=== PATIENT | male | born 1940 | race Caucasian/White ===

== ENCOUNTER 2016-09-04 22:17 | Inpatient (IN) ==
[2016-09-04] MEDS ORDERED: SODIUM CHLORIDE 0.9% 500 ML IV STA (23:04)
[2016-09-04 23:14] LABS: Basophils # 0.1 10*3/uL (0.0-0.2); Basophils % 0.5 % (0.0-0.8); Eosinophils # 0.1 10*3/uL (0.0-0.87); Eosinophils % 1.2 % (0.00-10.9); Hematocrit 39.2 VOL% (42.0-52.0); Hemoglobin 13.5 GM/DL (14.0-18.0); Immature Granulocytes % 0.3 %; Immature Granulocytes Absolute 0.03 #; Lymphocytes # 3.1 10*3/uL (1.4-4.0); Lymphocytes % 32.3 % (21.2-54.2); Mean Corpuscular HGB Conc 34.4 GM/DL (32-36); Mean Corpuscular Hemoglobin 29 PG (27-34); Mean Corpuscular Volume 85.4 FL (87-102); Mean Platelet Volume 10.6 FL (9.6-12.0); Monocytes # 0.8 10*3/uL (0.11-0.8); Monocytes % 7.7 % (1.7-12.7); Neutrophils # 5.6 10*3/uL (1.4-7.4); Platelet Count 344 T/CUMM (130-400); Red Blood Count 4.59 MC/CUMM (3.8-5.5); Red Cell Distribution Width 13.3 % (9.3-17.3); White Blood Count 9.7 T/CUMM (4-12)
--- NOTE | 2016-09-04 23:21 | EKG Report ---
Stationary ECG Study [facility] ER Test Date: 09/04/2016 11:20:55 PM Pat Name: ALEJANDRA CHEW Department: Room: Gender: M Financial Operations Analyst: : 1940 Requested by: Tino Duncan Order Number: [id number] Reading MD: EPIFANIO POST Intervals [place] Rate: 63 P: 14 WV: 174 QRS: -15 QRSD: 110 T: -3 QT: 392 QTc: 399 Interpretive Statements SINUS RHYTHM WITH OCCASIONAL SUPRAVENTRICULAR PREMATURE COMPLEXES MINIMAL ST DEPRESSION Left ventricular hypertrophy Electronically Signed On 09-06-16 21:45:22 CDT by EPIFANIO POST [email or web address]
--- NOTE | 2016-09-04 23:23 | Emergency Department Note ---
ILevi Emily, am scribing for, and in the presence of, Tino Fuller MD 23: 09. Alina Fall Charles R, MD, personally performed the services described in this documentation, ascribed by Jazlyn Sims in my presence, and it is both accurate and complete 323 . Arrival - Arrival Chief Complaint: Altered Mental Status Stated Complaint: fall ED Nursing Triage Note: [facility] pt to room via stretcher. pt fell , em[facility] called for altered mental status. pt denies injury. Mode of Arrival: Stretcher Limitations: Altered Mental Status Source: Patient, Guardian Time Seen by Provider: 09/04/16 22:43 - History of Present Illness HPI Narrative: Pt is a 76 y/o male who was transferred from [facility] for further evaluation of AMS and seizure activity that happened earlier today. Pt is poor historian. chief supply chain officer notes he was in medical holding cell when fell out and was shaking afterwards and incontinence. Officer states he has been altered past couple days, going in and out of other inmates' cells thinking was his cell, and described as "delusional." Pt is currently talking out of his head in ED. Officer reports with EMS pt's BP was elevated of 190-70's/100-111, however, in ED it is 203/93. Onset (ago): hour(s) Consistency: constant Severity: mild, moderate Severity scale (1-10): 4 Quality: other (confused) Allergies/Adverse Reactions: Allergies Allergy/AdvReac Type Severity Reaction Status Date / Time codeine Allergy ITCHING Verified 09/04/16 22:27 Review of System - Review of System ROS unobtainable: due to mental status Medical,Surgical,& Family Hx - Social History Smoking Status: Unknown if ever smoked Frequency of Alcohol Use: Unknown Type of Drug Use: None Marital Status: Single Exam Vital Signs: Vital Signs Temperature 97.1 F L 09/04/16 22:17 Pulse Rate 70 09/04/16 22:49 Respiratory Rate 18 09/04/16 22:49 Blood Pressure 199/96 09/04/16 22:17 O2 Sat by Pulse Oximetry 99 09/04/16 22:17 - General General appearance: alert, in no apparent distress, other (parkinsonal shake) - Head Head exam: Present: atraumatic, normocephalic - Eye Eye exam: Present: PERRL, EOMI - ENT ENT exam: Present: mucous membranes moist. Absent: mucous membranes dry - Neck Neck exam: Present: full ROM. Absent: tenderness - Chest Chest inspection: Present: symmetric chest wall rise. Absent: tenderness - Respiratory Respiratory exam: Present: normal lung sounds bilaterally. Absent: respiratory distress - Cardiovascular Cardiovascular exam: Present: regular rate, normal rhythm, normal heart sounds - Extremities Exam Extremities exam: Present: full ROM. Absent: tenderness, pedal edema - Neurological Exam Neurological exam: Present: alert, CN II-XII intact, other (confused). Absent: oriented X3, motor sensory deficit - Skin Skin exam: Present: warm, dry Course - Consultations Consultation #1: Hospitalist will admit patient Time: 00:28 Results - Labs CBC & BMP: 09/04/16 23:04 09/04/16 23:04 Lab Results: I have reviewed the patients labs Labs: Laboratory Tests 09/04/16 23:04 Hgb 13.5 L Hct 39.2 L MCV 85.4 L Laboratory Tests 09/04/16 09/04/16 23:04 23:34 Sodium 152 H Chloride 117 H Anion Gap 15.7 H BUN/Creatinine Ratio 45.00 H Glucose 109 H Calculated Osmolality 311.7 H Urine Urobilinogen 2.0 H Serum Alcohol < 15 L Disposition Clinical Impression: Altered mental status, Hypernatremia, Confusion, Syncope and collapse, Unsteady gait Case discussed with: patient Disposition: Still a Patient Condition: Stable Time of Disposition: 00:28
[2016-09-04 23:30] LABS: Alanine Aminotransferase 21 U/L (16-61); Alkaline Phosphatase 100 U/L (45-117); Aspartate Amino Transferase 33 U/L (0-37); Blood Urea Nitrogen 41 MG/DL (7-18); Calcium 9.1 MG/DL (8.5-10.1); Glucose 109 MG/DL (74-106); Magnesium 2.3 MG/DL (1.8-2.4); Osmolality,Calculated 311.7 MOS/KG (273-304); Potassium 3.7 MMOL/L (3.5-5.1); Sodium 152 MMOL/L (136-145); Total Protein 7.4 G/DL (6.4-8.3); Troponin I Only < 0.015 NG/ML (0.00-0.045)
[2016-09-04 23:39] LABS: Apearance,Urine CLEAR (Clear); Bilirubin,Urine Negative (Negative); Blood, Urine Negative (Negative); Glucose,Urine (UA) Negative (Negative); Ketones,Urine 5 mg/dL (Negative); Mucus,Urine Occasional /LPF (Occasional); Nitrite,Urine Negative (Negative); Protein,Urine Negative; RBC,Urine <1 /HPF (0-4); Urine Color Yellow (Yellow); Urine Specific Gravity 1.027 (1.001-1.035); WBC,Urine 2 /HPF (0-6)
[2016-09-04 23:44] LABS: Barbiturates Screen,Urine Negative (Negative); Benzodiazepines Screen,Urine Negative (Negative); Cannabinoid Screen,Urine Negative (Negative); Opiate Screen,Urine Negative (Negative); Phencyclidine Screen,Urine Negative (Negative)
[2016-09-05 02:22] LABS: Ammonia 17 UMOL/L (11-32)
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
[2016-09-05] MEDS ORDERED: ONDANSETRON 4 MG/2 ML VIAL IV PRN (03:42)
[2016-09-05] MEDS ORDERED: hydrALAZINE 20 MG/1 ML VIAL ONE (04:09)
[2016-09-05] MEDS: hydrALAZINE 20 MG/1 ML VIAL IV PRN ×3 (04:10→20:48)
[2016-09-05] MEDS ORDERED: SODIUM CHLORIDE 0.9% 1,000 ML IV SCH (05:00)
--- NOTE | 2016-09-05 07:06 | CT Report ---
CT head/brain wo con INDICATION: Altered mental status/confusion The total DLP is 1225 mGy*cm. COMPARISON: None available Technique: Serial axial tomographic images of the brain were obtained without the use of intravenous contrast. Dose reduction: This CT exam was performed using one or more of the following dose reduction techniques: Automated exposure control, automated adjustment of the mA and/or KV according to patient size, or use of iterative reconstruction technique. Findings: Moderate generalized atrophy is noted with mild prominence of the sulci and cortical volume loss. Focal hypodensity within the right frontal lobe cortical and subcortical white matter is most compatible with remote infarct and encephalomalacic changes. Prominent periventricular white matter hypodensity changes are also noted bilaterally which do not demonstrate mass effect and are nonspecific but favored to represent sequela of chronic microvascular ischemia. There is no evidence of vascular territory infarct or acute intracranial hemorrhage. The cleaning-white matter differentiation is generally maintained. There is no hydrocephalus. The basilar cisterns are patent. Partial opacification of the right maxillary sinus is noted. Otherwise, the visualized paranasal sinuses, mastoid air cells and middle ear cavities are predominantly clear. The included orbits and their contents appear within normal limits. The visualized osseous structures and overlying soft tissues of the skull and face demonstrate no acute abnormality. IMPRESSION: No acute intracranial hemorrhage or infarction. Probable remote right frontal lobe infarct. Diffuse somewhat prominent areas of periventricular white matter hypodensity which are nonspecific and may represent sequela of chronic microvascular ischemia. Other causes including metabolic or demyelinating are not excluded. If there is continued concern for underlying infarct, MRI would be recommended. Preliminary report by virtual radiologic. PROCEDURE INTERPRETED AT [facility] DEPARTMENT OF RADIOLOGY Final Report Signed by: Tyler Easton
--- NOTE | 2016-09-05 08:07 | XRay Report ---
Exam: XR chest 1V portable Indication: Altered mental status Comparison study: None Findings: The heart, mediastinum, and bony structures are within normal limits. There is no focal consolidation, pneumothorax or pleural effusion identified. Impression: No acute cardiopulmonary process. PROCEDURE INTERPRETED AT [facility] DEPARTMENT OF RADIOLOGY Final Report Signed by: Tyler Easton
[2016-09-05 08:47] LABS: Calcium 8.7 MG/DL (8.5-10.1); Osmolality,Calculated 305.7 MOS/KG (273-304); Potassium 3.4 MMOL/L (3.5-5.1)
[2016-09-05] MEDS ORDERED: LISINOPRIL/HCTZ 20-12.5 MG TABLET PO SCH (09:00)
[2016-09-05] MEDS: PANTOPRAZOLE 40 MG TABLET PO SCH (11:08)
[2016-09-05] MEDS: TAMSULOSIN 0.4 MG CAPSULE PO SCH (11:08)
[2016-09-05] MEDS: ENOXAPARIN 40 MG/0.4 ML SYRINGE SUBCUT SCH (11:09)
--- NOTE | 2016-09-05 11:44 | Magnetic Resonance Report ---
Exam: MR head/brain wo con Date: 09/05/2016 7:00 AM Comparison: CT brain 09/04/2016 Indication: Alteration of consciousness Technique:[Multiple acquisitions were obtained including sagittal T1, coronal T2, and axial ADC, diffusion, FLAIR, T2, GRE, and T1 scans without contrast only. Scans were obtained on an open 1.2 Maddie magnet. Findings: The ventricles remain normal in size with no midline displacement. The pituitary has a normal appearance and the cerebellar tonsils are normal in location. No acute infarction is identified in the diffusion scans. No evidence of hemorrhage, mass, or extracerebral collection. Diffuse atrophy and FLAIR/T2 hyperintensities. Bilateral frontal lobe infarctions with finding larger on the right. Chronic bilateral basal ganglia and right pontine infarcts. Additional enlarged perivascular spaces. 15 mm air-fluid level in the right maxillary sinus with additional minimal mucosal thickening/fluid. No acute findings in the orbits, temporal bones, or [place] of [place]. Impression: No acute infarction is identified. Cerebral atrophy with extensive microvascular disease and multiple chronic infarcts. Sinusitis. PROCEDURE INTERPRETED AT [facility] DEPARTMENT OF RADIOLOGY Final Report Signed by: Dr. Sandra Arenas
[2016-09-05] MEDS ORDERED: amLODIPine 10 MG TABLET PO SCH (13:00)
--- NOTE | 2016-09-05 13:07 | Hospitalist Progress Note ---
Assessment and Plan (1) Hypertensive crisis Status: Acute Assessment and plan: Patient is actually extremely orthostatic he went from 170-130. I will hold the Norvasc continue the losartan I will give him a liter of normal saline and continue hydration with D5W, head of his bed needs to remain in a 90 angle at all times. Current Visit: Yes (2) CVA, old, ataxia Status: Acute Assessment and plan: MRI shows no evidence of new infarcts but does show bilateral chronic infarcts continue aspirin Current Visit: Yes (3) Altered mental status Status: Acute Assessment and plan: probably due to dehydration and hypernatremia Current Visit: Yes (4) Hypernatremia Status: Acute Assessment and plan: cont d5w at 125 ml/hr Current Visit: Yes (5) Syncope and collapse Status: Acute Assessment and plan: due to orthostatic hypotension, PT evaluation and treat Current Visit: Yes Hospitalist: Subjective Interval history: On examination prisoner does seem confused. Guards could not tell me anything about his baseline. He was also weak on his left side on examination. MRI of his brain shows previous multiple infarcts but nothing acute. Patient has been falling out of the senior care so I will check orthostatics. His blood pressure is extremely high. His heart rate is low and therefore I cannot use beta blockers. Patient is not on aspirin but I have started one. I was called by Ross the nurse and he is severely orthostatic drops from 170 down to 130 with standing up. Exam - Constitutional Vitals: Period Temp Pulse Resp BP Sys/Alonso Pulse Ox Last 24 Hr 97.8 F-98.9 F 54-90 18-20 170-186/77-82 94-99 Exam: Heart Rate-[RRR] Lungs-[CTAB] GI-[+bs soft, NT] Ext-[no edema] Neuro [Motor 5/5 but weaker on left], [alert and oriented times 1] psych [normal mood and affect] General [no acute distress] Results - Labs CBC & BMP: 09/04/16 23:04 09/05/16 08:04 Lab Results: I have reviewed the past 24 hour labs - Diagnostic Findings Procedure: MRI: report reviewed by me (chronic bilateral infarcts, nothing acute )
[2016-09-05] MEDS ORDERED: POTASSIUM CHLORIDE 20 MEQ TABLET PO ONE (13:08)
[2016-09-05] MEDS ORDERED: SODIUM CHLORIDE 0.9% 1,000 ML IV ONE (13:52)
[2016-09-05] MEDS: ASPIRIN EC 81 MG TABLET PO SCH (14:16)
[2016-09-05] MEDS: LOSARTAN 50 MG TABLET PO SCH ×2 (14:16→20:48)
[2016-09-05] MEDS: DEXTROSE 5% 1,000 ML IV SCH ×2 (17:18→23:48)
[2016-09-05 18:10] LABS: ABG Base Excess -0.2 MMOL/L (-2.5-2.5); ABG HCO3 22.5 MMOL/L (20-26); ABG Oxygen Saturation 96.5 % (95-100); ABG PCO2 31.3 MM HG (35-48); ABG PH 7.474 (7.35-7.45); ABG PO2 81.7 MM HG (80-95); ABG TCO2 23.4 MMOL/L (23-27); Allen Test Positive; Pt O2 Delivery Device Room Air
[2016-09-06] MEDS: hydrALAZINE 20 MG/1 ML VIAL IV PRN (00:48)
[2016-09-06 05:33] LABS: Calcium 8.3 MG/DL (8.5-10.1); Osmolality,Calculated 297.1 MOS/KG (273-304); Potassium 3.5 MMOL/L (3.5-5.1)
[2016-09-06] MEDS: DEXTROSE 5% 1,000 ML IV SCH ×2 (06:59→13:12)
[2016-09-06] MEDS: PANTOPRAZOLE 40 MG TABLET PO SCH (08:52)
[2016-09-06] MEDS: TAMSULOSIN 0.4 MG CAPSULE PO SCH (08:52)
[2016-09-06] MEDS: ASPIRIN EC 81 MG TABLET PO SCH (08:52)
[2016-09-06] MEDS: ENOXAPARIN 40 MG/0.4 ML SYRINGE SUBCUT SCH (08:52)
[2016-09-06] MEDS: LOSARTAN 50 MG TABLET PO SCH ×2 (08:52→21:09)
--- NOTE | 2016-09-06 11:09 | Hospitalist Progress Note ---
Assessment and Plan (1) Hypertensive crisis Status: Acute Assessment and plan: patient has orthostatic hypotension which has not improved with hydration. Patient has terrible supine hypertension patient to sleep at the head of the bed and angle at night. will add norvasc, he has neurogenic hypotension. Current Visit: Yes (2) CVA, old, ataxia Status: Acute Assessment and plan: MRI shows no evidence of new infarcts but does show bilateral chronic infarcts continue aspirin Current Visit: Yes (3) Altered mental status Status: Acute Assessment and plan: Resolved Current Visit: Yes (4) Hypernatremia Status: Acute Assessment and plan: cont d5w at 125 ml/hr Current Visit: Yes (5) Syncope and collapse Status: Acute Assessment and plan: due to orthostatic hypotension due to dehydration, PT evaluation and treat Current Visit: Yes Hospitalist: Subjective Interval history: Needs to sleep on a foam wedge at the person. Head of his bed needs to be elevated at all times when he is sleeping. Patient is still orthostatic today but says he feels fine. His confusion has resolved. The present will not pay for any rehab at this time. Will most likely returning to intermediate tomorrow. Exam - Constitutional Vitals: Period Temp Pulse Resp BP Sys/Alonso Pulse Ox Last 24 Hr 98.1 F-99.1 F 65-88 12-20 133-198/69-101 94-100 Exam: Heart Rate-[RRR] Lungs-[CTAB] GI-[+bs soft, NT] Ext-[no edema] Neuro [Motor 5/5 but weaker on left], [alert and oriented times 3] psych [normal mood and affect] General [no acute distress] Results - Labs CBC & BMP: 09/04/16 23:04 09/06/16 03:48 Lab Results: I have reviewed the past 24 hour labs
[2016-09-06] MEDS: amLODIPine 5 MG TABLET PO SCH (13:17)
[2016-09-07] MEDS: DEXTROSE 5% 1,000 ML IV SCH ×2 (09:50→12:23)
[2016-09-07] MEDS: TAMSULOSIN 0.4 MG CAPSULE PO SCH (09:56)
[2016-09-07] MEDS: LOSARTAN 50 MG TABLET PO SCH ×2 (09:56→21:11)
[2016-09-07] MEDS: amLODIPine 5 MG TABLET PO SCH (09:57)
[2016-09-07] MEDS: ENOXAPARIN 40 MG/0.4 ML SYRINGE SUBCUT SCH (09:57)
[2016-09-07] MEDS: ASPIRIN EC 81 MG TABLET PO SCH (09:57)
[2016-09-07] MEDS: PANTOPRAZOLE 40 MG TABLET PO SCH (09:57)
[2016-09-07 10:49] LABS: Basophils % 0.3 % (0.0-0.8); Eosinophils # 0.1 10*3/uL (0.0-0.87); Eosinophils % 0.6 % (0.00-10.9); Hematocrit 39.3 VOL% (42.0-52.0); Hemoglobin 13.6 GM/DL (14.0-18.0); Immature Granulocytes % 0.4 %; Immature Granulocytes Absolute 0.05 #; Lymphocytes # 3.4 10*3/uL (1.4-4.0); Lymphocytes % 28.2 % (21.2-54.2); Mean Corpuscular HGB Conc 34.6 GM/DL (32-36); Mean Corpuscular Hemoglobin 30 PG (27-34); Mean Corpuscular Volume 85.8 FL (87-102); Mean Platelet Volume 9.9 FL (9.6-12.0); Monocytes # 0.9 10*3/uL (0.11-0.8); Monocytes % 7.1 % (1.7-12.7); Neutrophils # 7.5 10*3/uL (1.4-7.4); Neutrophils % 63.4 % (38.7-73.9); Platelet Count 335 T/CUMM (130-400); Red Blood Count 4.58 MC/CUMM (3.8-5.5); Red Cell Distribution Width 13.4 % (9.3-17.3); White Blood Count 11.9 T/CUMM (4-12)
[2016-09-07 11:16] LABS: Calcium 8.6 MG/DL (8.5-10.1); Osmolality,Calculated 304.7 MOS/KG (273-304); Potassium 3.4 MMOL/L (3.5-5.1)
--- NOTE | 2016-09-07 11:37 | CT Report ---
History: Confusion. History of CVA. Syncope Date: 09/07/2016 Study: CT head without contrast Comparison exam: September 04, [address] sections were obtained through the head without IV contrast. Total DLP measures 1025.6 mGy*cm. The CT exam was performed using one or more of the following dose reduction techniques: Automated exposure control and adjustment of the mA and/or kV according to patient size. The ventricles are midline in position without evidence of hydrocephalus. There is mild cerebral atrophy. There is no mass effect or parenchymal hemorrhage. There is no gross CT evidence of acute cortical stroke. There is a moderate amount of patchy ill-defined decreased density in the periventricular white matter without mass effect compatible with changes of small vessel disease. There is chronic infarction in the right frontal lobe involving right MCA distribution territory as before. There is no extra-axial hematoma. There is suspected chronic lacunar infarction in the moreno to the right of midline. The partially visualized paranasal sinuses and mastoid air cells are clear. There is no acute abnormality of the calvarium. Impression: No acute intracranial process compared to the previous study. Chronic ischemic changes as before PROCEDURE INTERPRETED AT [facility] DEPARTMENT OF RADIOLOGY Final Report Signed by: Dr. Nemo Goldman
[2016-09-07] MEDS: CARVEDILOL 3.125 MG TABLET PO SCH ×2 (12:19→21:11)
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
--- NOTE | 2016-09-07 15:28 | Ultrasound Report ---
History: Leg swelling Date: 09/07/2016 Study: Bilateral lower extremity color flow venous Doppler study Comparison exam: No previous venous ultrasound currently available Color Doppler, wave form analysis, and compression analysis of the deep veins of both lower extremities from the common femoral vein level through the popliteal vein level shows that the veins are readily compressible. There is no abnormal intraluminal material to suggest thrombus. Waveform analysis is unremarkable. Ultrasound images were captured and archived Impression: Normal bilateral lower extremity color flow venous Doppler study. No evidence of acute DVT PROCEDURE INTERPRETED AT [facility] DEPARTMENT OF RADIOLOGY Final Report Signed by: Dr. Nemo Goldman
[2016-09-07] MEDS ORDERED: VANCOMYCIN INJ 2,000 MG in SODIUM CHLORIDE 0.9% 500 ML IV ONE (15:30)
--- NOTE | 2016-09-07 15:41 | XRay Report ---
History: Shortness of breath Date: 09/07/2016 Study: Chest x-ray AP portable Comparison exam: September 04, 2016 chest x-ray The cardiac silhouette is upper normal in size. There is no mediastinal mass. The pulmonary vasculature is not engorged. There is moderate elevation of the right hemidiaphragm as before. There is some mild strandy subsegmental atelectasis in the right lung base. There is no potential acute infiltrate otherwise. There is no gross pleural effusion. Osseous structures are unchanged. Impression: Mild platelike subsegmental atelectasis right lung base. No significant change from the previous study otherwise PROCEDURE INTERPRETED AT [facility] DEPARTMENT OF RADIOLOGY Final Report Signed by: Dr. Nemo Goldman
[2016-09-07] MEDS: cefTRIAXone 2,000 MG in SODIUM CHLORIDE 0.9% 100 ML IV SCH (15:51)
[2016-09-07] MEDS: POTASSIUM CHLORIDE INJ 40 MEQ in DEXTROSE 5% 1,000 ML IV SCH (15:51)
[2016-09-07] MEDS: hydrALAZINE 20 MG/1 ML VIAL IV PRN (16:53)
[2016-09-08] MEDS: cefTRIAXone 2,000 MG in SODIUM CHLORIDE 0.9% 100 ML IV SCH ×2 (03:21→15:54)
[2016-09-08] MEDS: VANCOMYCIN INJ 1,250 MG in SODIUM CHLORIDE 0.9% 250 ML IV SCH ×2 (04:37→17:48)
[2016-09-08 05:27] LABS: Basophils % 0.4 % (0.0-0.8); Eosinophils # 0.2 10*3/uL (0.0-0.87); Eosinophils % 2.1 % (0.00-10.9); Hematocrit 37.2 VOL% (42.0-52.0); Hemoglobin 12.9 GM/DL (14.0-18.0); Immature Granulocytes % 0.3 %; Immature Granulocytes Absolute 0.03 #; Lymphocytes # 3.2 10*3/uL (1.4-4.0); Mean Corpuscular HGB Conc 34.7 GM/DL (32-36); Mean Corpuscular Hemoglobin 29 PG (27-34); Mean Corpuscular Volume 84.4 FL (87-102); Mean Platelet Volume 10.9 FL (9.6-12.0); Monocytes # 0.9 10*3/uL (0.11-0.8); Monocytes % 8.7 % (1.7-12.7); Neutrophils # 5.5 10*3/uL (1.4-7.4); Neutrophils % 55.5 % (38.7-73.9); Platelet Count 324 T/CUMM (130-400); Red Blood Count 4.41 MC/CUMM (3.8-5.5); Red Cell Distribution Width 13.5 % (9.3-17.3); White Blood Count 9.8 T/CUMM (4-12)
[2016-09-08 05:53] LABS: Albumin 3.1 G/DL (3.4-5.0); Bilirubin,Total 0.6 MG/DL (0.2-1.0); Calcium 7.8 MG/DL (8.5-10.1); Osmolality,Calculated 303.7 MOS/KG (273-304); Potassium 3.7 MMOL/L (3.5-5.1); Total Protein 6.3 G/DL (6.4-8.3)
[2016-09-08] MEDS: TAMSULOSIN 0.4 MG CAPSULE PO SCH (08:28)
[2016-09-08] MEDS: PANTOPRAZOLE 40 MG TABLET PO SCH (08:28)
[2016-09-08] MEDS: LOSARTAN 50 MG TABLET PO SCH ×2 (08:42→22:48)
[2016-09-08] MEDS: CARVEDILOL 3.125 MG TABLET PO SCH ×2 (08:43→17:48)
[2016-09-08] MEDS: amLODIPine 5 MG TABLET PO SCH (08:43)
[2016-09-08 09:12] LABS: PT Patient Result 10.8 SECS
--- NOTE | 2016-09-08 10:39 | Post Interventional Procedure ---
Pre-op diagnosis: altered mental status with confusion, syncope/collapse Post-op diagnosis: same Procedure: lumbar puncture Contrast: none Flouroscopy: 0.7 min Radiologist: Tyler Easton Anesthesia: local Specimens: other (10 mL clear colorless CSF sent) Estimated blood loss: none Complications: none Condition: stable Description/Findings: L3-L4 intersapce accessed without difficulty. Opening pressure 20 cm H2O. 10 mL clear, colorless CSF sent for analysis. sterile dressing applied. patient tolerated procedure well with no complications. Assessment and Plan - Time spent with patient Time spent with patient: Less than 30 minutes
--- NOTE | 2016-09-08 10:44 | Interventional Radiology Rpt ---
Procedure: IR lumbar puncture diagnostic Clinical history: 76 year-old male with hypertensive crisis, old history of stroke, altered mental status/confusion and syncope/collapse. Procedure: Informed consent was obtained prior to procedure. Formal timeout was performed. Maximum sterile barrier technique was employed. The patient was placed prone on the fluoroscopy table. The low back was prepped and draped in a sterile fashion. A midline lumbar puncture was then performed at the L3-L4 interspace using a 20-gauge spinal needle. Fluoroscopic guidance was used and a captured image documents the needle position. An opening pressure of 8 cm water was obtained. Subsequently, 10 milliliters of clear, colorless CSF was withdrawn and sent to laboratory. The spinal needle was removed and a bandage placed the puncture site. Fluoroscopy time: 0.7 minutes. Consultations: None. Impression: Technically successful diagnostic lumbar puncture as described. PROCEDURE INTERPRETED AT [facility] DEPARTMENT OF RADIOLOGY Final Report Signed by: Tyler Easton
[2016-09-08 11:12] LABS: Appearance,CSF Clear; Lymphocytes,CSF 44 %; Monocytes,CSF 56 %; Red Blood Cell,CSF < 1 C/CUMM; White Blood Cell,CSF 14 C/CUMM
[2016-09-08 11:20] LABS: Glucose,CSF 61 MG/DL (40-70)
--- NOTE | 2016-09-08 11:59 | Hospitalist Progress Note ---
Assessment and Plan (1) Altered mental status Status: Acute Assessment and plan: 1)confusion/altered mental status- LP results pending. On vanc and ceftriaxone in [place] meantime. No fever, no rash. Bcx negative, UA neg. Likely due to hypernatremia. syphillis neg. 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 While at rest BP up to 190 yesterday- now 150s on coreg. 4)hypernatremia- sodium is 152- continue hydration. Current Visit: Yes (2) Hypernatremia Status: Acute Current Visit: Yes (3) Syncope and collapse Status: Acute Current Visit: Yes (4) CVA, old, ataxia Status: Acute Current Visit: Yes (5) Hypertensive crisis Status: Acute Current Visit: Yes Hospitalist: Subjective Interval history: MR Edmonds feels ok this morning he says but remains confused. He is oriented to year and president, not month or day. He was cooperative with LP. He is hungry. Exam - Constitutional Vitals: Period Temp Pulse Resp BP Sys/Alonso Pulse Ox Last 24 Hr 97.2 F-99.5 F 72-84 17-22 150-191/73-97 94-98 General appearance: normal weight, no acute distress - Head Head exam: Present: normocephalic, atraumatic - Eye Eye exam: Present: EOMI. Absent: scleral icterus Pupils: Present: REBECA - Respiratory Respiratory exam: Present: clear to auscultation bilaterally - Cardiovascular Cardiovascular exam: Present: regular rate and rhythm - GI/Abdominal GI/Abdominal exam: Present: normal bowel sounds, soft. Absent: tenderness - Extremities Exam Extremities exam: Absent: edema - Neurological Exam Neurological exam: Present: alert. Absent: motor sensory deficit - Skin Skin exam: Present: warm, dry Results - Labs CBC & BMP: 09/08/16 04:36 09/08/16 04:36 Lab Results: I have reviewed the past 24 hour labs
[2016-09-08] MEDS: POTASSIUM CHLORIDE INJ 40 MEQ in DEXTROSE 5% 1,000 ML IV SCH ×2 (13:34→22:40)
[2016-09-08] MEDS: ACYCLOVIR INJ 1,000 MG in SODIUM CHLORIDE 0.9% 250 ML IV SCH ×2 (13:35→22:49)
--- NOTE | 2016-09-08 13:41 | Neurology Consult Note ---
History of Present Illness History of present illness: Mr. Edmonds is a 76 year old male who was transferred from the correctional facility for further evaluation of altered mental status and possible seizure activity that happened earlier the day of admission. Patient is a poor historian and history basically obtained from the chart. We have been told by the security patrol officer that this is not his normal way of acting. We were told there was an event where he fell out and was shaking afterwards and incontinent. Officer has told us that for the past couple of days has been going in and out of other inmates cells think it was his cell. He has been noted as being delusional. Patient also reported to me that he has been blacking out for last 1 month. He has done that 3-4 times. MRI of the brain is unremarkable. Spinal tap reveals 14 WBC count otherwise absolutely unremarkable. Normal glucose, proteins. Home Medications Medication Instructions Recorded Confirmed Type Cyclobenzaprine HCl 10 mg PO BID 09/05/16 09/05/16 History Lisinopril/Hydrochlorothiazide 12.5 mg PO DAILY 09/05/16 09/05/16 History [Lisinopril-Hctz 20-12.5 mg Tab] Naproxen [Naprosyn Tab] 500 mg PO BID PRN 09/05/16 09/05/16 History Tamsulosin [Flomax] 0.4 mg PO DAILY 09/05/16 09/05/16 History Allergies Allergy/AdvReac Type Severity Reaction Status Date / Time codeine Allergy ITCHING Verified 09/04/16 22:27 12 point system: reviewed and no additional remarkable complaints except as stated Medical,Surgical,& Family Hx - Medical History Cardio: History of: Hypertension Genitourinary: History of: Prostate Problems Other: History of: Miscellaneous Medical Problems (Hepatitis B and C) - Social History Smoking Status: Unknown if ever smoked Frequency of Alcohol Use: Unknown Type of Drug Use: Unknown Exam - Constitutional Vitals: Period Temp Pulse Resp BP Sys/Alonso Pulse Ox Last 24 Hr 97.2 F-98.7 F 72-84 17- 150-182/73-95 94-98 Exam: GENERAL: Patient is in no acute distress. NECK: Neck is supple. There is no JVD. No carotid bruits present. No thyroid masses. CVS: First and second heart sounds are normal. There is no S3 present. Regular rate and rhythm. RESPIRATORY: Lungs are clear to auscultation without any rales or rhonchi. ABDOMEN: Soft and non-tender. Bowel sounds are present. There is no hepatosplenomegaly. EXT: There is no palpable edema. Peripheral pulses are present. Skin: No rashes Central Nervous system: General: Alert, awake and Oriented x 3 Speech: Fluent Comprehension: Intact and normal Facial expressions: Normal Cranial Nerves: CN1/Olfactory: Normal CN II/ Optic: Normal, Visual Mera unreliable CN III, and : REBECA & EOMI CN V: Normal & intact CN VII: face is symmetric CNVIII: Normal CN XI/X/XI/XII: Intact and Normal Motor: Bulk and Tone is normal. Strength in the right 5/5 Strength in the left 5/5 Sensory: Grossly intact for all the modalities of PP, LT and temp sense Reflexes: 1+ and symmetrical Cerebellar function: Normal finger to nose and heel to dunn testing. Toes: Equivocal Gait: Not tested Results - Labs CBC & BMP: 09/08/16 04:36 09/08/16 04:36 Assessment and Plan (1) Altered mental status Status: Acute Assessment and plan: Suspect viral etiology of meningeal irritation. Agree with acyclovir until we get PCR results back EEG Thank you for the consult Current Visit: Yes
--- NOTE | 2016-09-08 15:05 | Physician Query Form ---
CLICK EDIT DOCUMENT TO SELECT QUERY ANSWER --> OK --> SIGN Flores Camacho RN Clinical Proof Load Mechanic W) [phone] (f) [phone] [email or web address] PROVIDERS: Make your selection(s) from the choices in EACH section by typing an "x" and enter comments in the comment section. Please use your independent medical judgment in providing your response. This request does not imply that any particular answer is desired or expected. CLINICAL INDICATORS: (Providers should not edit this section) Based on documentation of "Acute altered mental status" "Has been delusional" "Pt is currently talking out of his head" "Acute hypernatremia" "Acute Hypertensive crisis" "Acute confusion" Treated with NS bolus, IV Apresoline, IV Vancomycin, IV Zovirax. ACUITY: ( x) Acute ( ) Acute on Chronic ( ) Chronic ( ) Clinically unable to determine NATURE: (x ) Delirium due to general medical condition ( ) Dementia ( ) Encephalopathy ( ) Unconscious ( ) Transient level of awareness ( ) Comatose ( ) Locked-in State ( ) Persistent Vegetative State ( ) Other, please specify: ( ) Clinically unable to determine Please indicate the underlying cause of the altered mental status (CHECK ALL THAT APPLY): ( ) Baseline dementia ( ) Alzheimer's disease ( ) Parkinson's disease ( ) Lewy body dementia ( ) Acute stroke ( ) Late effect of stroke ( ) Reactive (from emotional stress, psychological trauma) ( ) Due to narcotics/other drugs ( ) Post procedural delirium ( ) Transient ischemic attack ( ) Generalized cerebral edema ( ) Normal pressure hydrocephalus ( ) Psychiatric illness ( ) Other, please specify: ( ) Clinically unable to determine Please indicate if there is an infection, sepsis, dehydration or specific organ failure that is causing the dementia. Be specific with clarifying the relationship between that process and the mental status change. COMMENTS: Use of terms such as suspected, likely, or probable (associated with a specific diagnosis that is being evaluated, monitored, or treated as if it exists) are acceptable and can be restated in the discharge summary if not ruled out. MTDD
[2016-09-09] MEDS: POTASSIUM CHLORIDE INJ 40 MEQ in DEXTROSE 5% 1,000 ML IV SCH (00:44)
[2016-09-09] MEDS: cefTRIAXone 2,000 MG in SODIUM CHLORIDE 0.9% 100 ML IV SCH ×2 (04:30→15:40)
[2016-09-09] MEDS: VANCOMYCIN INJ 1,250 MG in SODIUM CHLORIDE 0.9% 250 ML IV SCH ×2 (05:38→17:34)
[2016-09-09] MEDS: ACYCLOVIR INJ 1,000 MG in SODIUM CHLORIDE 0.9% 250 ML IV SCH ×3 (07:19→22:18)
[2016-09-09 08:21] LABS: Basophils % 0.4 % (0.0-0.8); Eosinophils # 0.2 10*3/uL (0.0-0.87); Hematocrit 38.4 VOL% (42.0-52.0); Hemoglobin 13.5 GM/DL (14.0-18.0); Immature Granulocytes % 0.3 %; Immature Granulocytes Absolute 0.03 #; Lymphocytes # 3.9 10*3/uL (1.4-4.0); Mean Corpuscular HGB Conc 35.2 GM/DL (32-36); Mean Corpuscular Hemoglobin 30 PG (27-34); Mean Corpuscular Volume 83.8 FL (87-102); Mean Platelet Volume 10.6 FL (9.6-12.0); Monocytes # 0.8 10*3/uL (0.11-0.8); Monocytes % 6.8 % (1.7-12.7); Neutrophils # 6.2 10*3/uL (1.4-7.4); Neutrophils % 55.5 % (38.7-73.9); Platelet Count 356 T/CUMM (130-400); Red Blood Count 4.58 MC/CUMM (3.8-5.5); Red Cell Distribution Width 13.5 % (9.3-17.3); White Blood Count 11.1 T/CUMM (4-12)
[2016-09-09 08:52] LABS: Bilirubin,Total 0.5 MG/DL (0.2-1.0); Calcium 8.2 MG/DL (8.5-10.1); Osmolality,Calculated 297.1 MOS/KG (273-304); Potassium 3.6 MMOL/L (3.5-5.1); Total Protein 6.3 G/DL (6.4-8.3)
[2016-09-09] MEDS: TAMSULOSIN 0.4 MG CAPSULE PO SCH (09:14)
[2016-09-09] MEDS: LOSARTAN 50 MG TABLET PO SCH ×2 (09:15→22:27)
[2016-09-09] MEDS: CARVEDILOL 3.125 MG TABLET PO SCH (09:15)
[2016-09-09] MEDS: PANTOPRAZOLE 40 MG TABLET PO SCH (09:15)
[2016-09-09] MEDS: amLODIPine 5 MG TABLET PO SCH (09:15)
[2016-09-09] MEDS ORDERED: NAPROXEN 500 MG TABLET PO PRN (11:33)
--- NOTE | 2016-09-09 11:33 | Hospitalist Progress Note ---
Assessment and Plan - Time spent with patient Time spent with patient: Less than 30 minutes (1) Altered mental status Status: Acute Assessment and plan: 76-year-old male admitted with viral meningitis. His confusion is improved. He is running low-grade fevers but will order Tylenol for this. He is on Rocephin, vancomycin, and acyclovir. Patient's blood pressure is elevated and this could be the source of his headache. He takes Norvasc, Coreg, and Cozaar for this. Will discuss with Dr. White about adjusting. His hypernatremia is trending down. It is 149 today. Continue with current IV fluids. LTAC placement in [place] is pending for tomorrow at [address] White Current Visit: Yes (2) Hypernatremia Status: Acute Current Visit: Yes (3) CVA, old, ataxia Status: Acute Current Visit: Yes (4) Hypertensive crisis Status: Acute Current Visit: Yes Hospitalist: Subjective Interval history: Patient states he is not feeling well today. He is running fevers up to 100.1. And he states he has a mild headache. He is eating and voiding well. Exam - Constitutional Vitals: Period Temp Pulse Resp BP Sys/Alonso Pulse Ox Last 24 Hr 98.3 F-100.3 F 59-72 16-20 148-172/75-96 92-97 Exam: 76-year-old white male, no acute distress, alert and oriented Chest clear CV regular rate and rhythm Abdomen soft and nontender Extremities with no edema Results - Labs CBC & BMP: 09/09/16 07:46 09/09/16 07:46 Lab Results: I have reviewed the past 24 hour labs
[2016-09-09] MEDS ORDERED: ACETAMINOPHEN 325 MG TABLET PO PRN ×2 (11:34)
--- NOTE | 2016-09-09 14:47 | Neurology Progress Note ---
Neurology - PN : Subjective Interval history: Patient seems to be doing okay. No new problems reported. Tolerating medicines well. EEG shows mild generalized slowing. Exam (Progress Note) - Constitutional Vitals: Period Temp Pulse Resp BP Sys/Alonso Pulse Ox Last 24 Hr 99.0 F-100.3 F 64-72 17-20 148-172/75-96 92-97 Exam: GENERAL: Patient is in no acute distress. NECK: Neck is supple. There is no JVD. No carotid bruits present. No thyroid masses. CVS: First and second heart sounds are normal. There is no S3 present. Regular rate and rhythm. RESPIRATORY: Lungs are clear to auscultation without any rales or rhonchi. ABDOMEN: Soft and non-tender. Bowel sounds are present. There is no hepatosplenomegaly. EXT: There is no palpable edema. Peripheral pulses are present. Skin: No rashes Central Nervous system: General: Alert, awake and Oriented x 3 Speech: Fluent Comprehension: Intact and normal Facial expressions: Normal Cranial Nerves: CN1/Olfactory: Normal CN II/ Optic: Normal, Visual Mera unreliable CN III, and : REBECA & EOMI CN V: Normal & intact CN VII: face is symmetric CNVIII: Normal CN XI/X/XI/XII: Intact and Normal Motor: Bulk and Tone is normal. Strength in the right 5/5 Strength in the left 5/5 Sensory: Grossly intact for all the modalities of PP, LT and temp sense Reflexes: 1+ and symmetrical Cerebellar function: Normal finger to nose and heel to dunn testing. Toes: Equivocal Gait: Not tested Results - Labs CBC & BMP: 09/09/16 07:46 09/09/16 07:46 Assessment and Plan (1) Altered mental status Status: Acute Assessment and plan: Suspect viral etiology of meningeal irritation. Continue IV acyclovir till we get PCR results back For LTAC placement in am Sign off please call. Current Visit: Yes
[2016-09-09] MEDS ORDERED: amLODIPine 10 MG TABLET PO SCH (15:18)
[2016-09-09] MEDS ORDERED: hydrALAZINE 20 MG/1 ML VIAL IV PRN (15:18)
--- NOTE | 2016-09-09 16:00 | Discharge Summary ---
<Niki Melgar - Last Filed: 09/09/16 15:56> Hospital Course - Hospital Course Hospital Course: Mr. Edmonds is a 76-year-old white male with history of hypertension sent to the ED from the correctional facility with altered mental status and orthostatic hypotension. Patient was found to be hyponatremic and dehydrated. He was gently rehydrated and his hypernatremia resolved. Patient continued to have fevers and mental confusion so further investigation revealed a viral meningitis. Dr. Arzate from neurology was consulted and patient has been receiving IV vancomycin, Rocephin, and acyclovir. Patient is feeling much better now and seems to be at his baseline. Because of his continued need for 2 weeks of IV antibiotics he will be transferred to [facility] in [place] for further treatment. - Time spent with patient Time with patient DS: Less than 30 minutes Diagnosis - Discharge Diagnosis (1) Altered mental status Status: Resolved (2) Hypernatremia Status: Resolved (3) CVA, old, ataxia Status: Chronic (4) Hypertensive crisis Status: Resolved Discharge Plan - Discharge Data Disposition: Disch/Xfer to Shelter Hos Condition at Discharge: Stable Discharge Diet: advance to your usual diet Activity: resume usual activities as tolerated Hygiene: may shower Contact your physician if you experience:: fever over 101 - Discharge Medications New Acetaminophen Tab [Tylenol Tab] 650 mg PO Q4H PRN #0 tablet PRN Reason: Fever, Headache, Mild Pain Acyclovir Inj [Zovirax Inj] 1,000 mg IV Q8H vial Carvedilol [Coreg] 6.25 mg PO BID W/MEALS tablet Losartan [Cozaar] 50 mg PO BID tablet Ondansetron Inj [Zofran Inj] 4 mg IV Q4H PRN #0 vial PRN Reason: Nausea Pantoprazole Tab [Protonix Tab] 40 mg PO DAILY tablet Vancomycin Inj 1,250 mg IV Q12H vial amLODIPine [Norvasc] 10 mg PO DAILY tablet hydrALAZINE INJ [Apresoline Inj] 10 mg IV Q6H PRN #0 vial PRN Reason: Hypertension Aspirin EC Tab 81 mg PO DAILY tablet cefTRIAXone [Rocephin] 2,000 mg IV Q12H vial Continue Tamsulosin [Flomax] 0.4 mg PO DAILY Naproxen [Naprosyn Tab] 500 mg PO BID PRN PRN Reason: Pain Discontinued Lisinopril/Hydrochlorothiazide [Lisinopril-Hctz 20-12.5 mg Tab] 12.5 mg PO DAILY Cyclobenzaprine HCl 10 mg PO BID - Follow Up or Referral - Forms/Instructions Exam - Constitutional Vitals: Period Temp Pulse Resp BP Sys/Alonso Pulse Ox Last 24 Hr 98.9 F-99.5 F 66-88 18-20 148-174/86-92 92-95 Exam: 76-year-old white male, no acute distress, alert and oriented Chest clear CV regular rate and rhythm Abdomen soft and nontender Extremities with no edema Discharge Results Procedures and tests throughout hospitalization: Pending Orders 09/08/16 ERNST CSF([facility]) Stat CSF Culture and Gram Stain Stat Cryptococcal Antigen Stat Rico-Taylor Virus PCR Stat Fungal Culture w/ Prep Stat HSV PCR Other Sources Stat Herpes Simplex Virus,PCR,CSF Stat Emi Ink Stat Meningitis Ags w/CSF Cult/Smea Stat VDRL Spinal Fluid Stat Varicella-Zoster Virus, PCR Stat Viral Culture, Non-Respiratory Stat West Nile Virus, CSF IgG/M Stat Labs on day of discharge: Labs from last 24 hours 09/10/16 09/10/16 09/10/16 01:57 01:57 01:57 WBC 11.5 RBC 4.32 Hgb 12.8 L Hct 35.9 L MCV 83.1 L MCH 30 MCHC 35.7 RDW 13.3 Plt Count 378 MPV 11.0 Neut % (Auto) 52.5 Lymph % (Auto) 37.3 [place] % (Auto) 7.4 Eos % (Auto) 2.1 Baso % (Auto) 0.3 Neut # (Auto) 6.0 Lymph # (Auto) 4.3 H [place] # (Auto) 0.9 H Eos # (Auto) 0.2 Baso # (Auto) 0.0 Immature Gran % 0.4 Nucleated RBC % 0.0 Immature Gran # 0.05 Nucleated RBCs # 0.00 Sodium 147 H 147 H Potassium 3.5 3.5 Chloride 112 H 113 H Carbon Dioxide 23 24 Anion Gap 15.5 H 13.5 BUN 17 17 Creatinine 0.90 0.90 GFR Calculation 97 97 BUN/Creatinine Ratio 18.00 18.00 Glucose 106 107 H Calculated Osmolality 293.4 293.4 Calcium 8.1 L 8.2 L Total Bilirubin 0.40 AST 21 ALT 21 Alkaline Phosphatase 77 Total Protein 6.1 L Albumin 2.9 L Globulin 3.2 Albumin/Globulin Ratio 0.9 L Vancomycin Trough 09/09/16 09/09/16 09/09/16 16:47 07:46 07:46 WBC 11.1 RBC 4.58 Hgb 13.5 L Hct 38.4 L MCV 83.8 L MCH 30 MCHC 35.2 RDW 13.5 Plt Count 356 MPV 10.6 Neut % (Auto) 55.5 Lymph % (Auto) 35.0 [place] % (Auto) 6.8 Eos % (Auto) 2.0 Baso % (Auto) 0.4 Neut # (Auto) 6.2 Lymph # (Auto) 3.9 [place] # (Auto) 0.8 Eos # (Auto) 0.2 Baso # (Auto) 0.0 Immature Gran % 0.3 Nucleated RBC % 0.0 Immature Gran # 0.03 Nucleated RBCs # 0.00 Sodium 149 H Potassium 3.6 Chloride 116 H Carbon Dioxide 21 Anion Gap 15.6 H BUN 15 Creatinine 0.70 GFR Calculation 108 BUN/Creatinine Ratio 21.00 H Glucose 111 H Calculated Osmolality 297.1 Calcium 8.2 L Total Bilirubin 0.50 AST 26 ALT 19 Alkaline Phosphatase 80 Total Protein 6.3 L Albumin 3.0 L Globulin 3.3 Albumin/Globulin Ratio 0.9 L Vancomycin Trough 12.9 Preliminary micro results at discharge 09/08/16 Unknown CSF Culture - Preliminary Cerebral Spinal Fluid No growth at 24 hours DS: Provider Date of admission: 09/05/16 03:42 Primary care physician: . No PCP Attending physician on admission: Meryl Fernandez MD Consults: 09/05/16 12:57 Consult to Case Mgmt/Social Srvs [CONS] Routine Reason for Case Mgmt/Social Srvs: Rehab Consult Comment: does group home pay for rehab Consult to Physical Therapy [CONS] Routine Reason for Physical Therapy: Weakness 09/07/16 14:19 Consult to Pharmacy [CONS] Routine Reason for Pharmacy Consult: Dose/Manage Vancomycin 09/08/16 12:23 Consult to Physician [CONS] Routine Comment: ? meningitis Consulting Provider: Hugh Arzate 09/09/16 10:42 Consult to Case Mgmt/Social Srvs [CONS] Routine Reason for Case Mgmt/Social Srvs: LTAC Rehab Consult Comment: LTAC placement @ [facility] in [place] Discharging clinician: BERTRAND Abel Expected date of discharge: 09/10/16 <Rosalee White - Last Filed: 09/10/16 08:12> Hospital Course - Hospital Course Hospital Course: I have seen and examined Mr Edmonds and agree with above. His CSF antigens were negative as was crypto. His bacterial cultures on CSF are negative so far but will not be final for another day so I will continue the vanc and ceftriaxone. His CSF studies were most consistent with viral meningitis and I anticipate he will need a couple of weeks of acyclovir. - Time spent with patient Time with patient DS: Greater than 30 minutes (discharge planning and coordination, documetation, medicine reconciliation) Diagnosis - Discharge Diagnosis (1) Altered mental status Status: Resolved (2) Hypernatremia Status: Resolved (3) Syncope and collapse Status: Acute (4) CVA, old, ataxia Status: Chronic (5) Hypertensive crisis Status: Resolved (6) Meningitis Status: Acute
[2016-09-09] MEDS: CARVEDILOL 6.25 MG TABLET PO SCH (17:33)
--- NOTE | 2016-09-09 20:54 | Electroencephalogram ---
HISTORY: A 76-year-old male with a history of fall with possible seizure activity. INTRODUCTION: A digital EEG was performed using the standard 10/20 system of electrode placement wi th one channel of EKG monitoring. Photic stimulation was performed. DESCRIPTION OF RECORD: The background is somewhat disorganized and consists of 7 to 7.5 hertz moder ate amplitude bilaterally symmetrical rhythm. Photic stimulation elicits a driving response at slow er flash frequencies. Hyperventilation was not performed. There are no focal, sharp-wave, spike, o r wave activity seen. Heart rate 70 beats per minute. IMPRESSION: ABNORMAL EEG DUE TO GENERALIZED SLOWING. CLINICAL CORRELATION: This record is supportive of moderate to severe encephalopathy, which could b e secondary to postictal state, posthypoxic state, metabolic disorder, diffuse SPRAY [employer]IT FEEDER insult, or increa sed intracranial pressure. No epileptiform/seizure activity seen. Clinical correlation is suggested.
[2016-09-10 02:56] LABS: Basophils % 0.3 % (0.0-0.8); Eosinophils # 0.2 10*3/uL (0.0-0.87); Eosinophils % 2.1 % (0.00-10.9); Hematocrit 35.9 VOL% (42.0-52.0); Hemoglobin 12.8 GM/DL (14.0-18.0); Immature Granulocytes % 0.4 %; Immature Granulocytes Absolute 0.05 #; Lymphocytes # 4.3 10*3/uL (1.4-4.0); Lymphocytes % 37.3 % (21.2-54.2); Mean Corpuscular HGB Conc 35.7 GM/DL (32-36); Mean Corpuscular Hemoglobin 30 PG (27-34); Mean Corpuscular Volume 83.1 FL (87-102); Monocytes # 0.9 10*3/uL (0.11-0.8); Monocytes % 7.4 % (1.7-12.7); Neutrophils % 52.5 % (38.7-73.9); Platelet Count 378 T/CUMM (130-400); Red Blood Count 4.32 MC/CUMM (3.8-5.5); Red Cell Distribution Width 13.3 % (9.3-17.3); White Blood Count 11.5 T/CUMM (4-12)
[2016-09-10 03:30] LABS: Calcium 8.1 MG/DL (8.5-10.1); Osmolality,Calculated 293.4 MOS/KG (273-304); Potassium 3.5 MMOL/L (3.5-5.1)
[2016-09-10 03:35] LABS: Albumin 2.9 G/DL (3.4-5.0); Bilirubin,Total 0.4 MG/DL (0.2-1.0); Calcium 8.2 MG/DL (8.5-10.1); Osmolality,Calculated 293.4 MOS/KG (273-304); Potassium 3.5 MMOL/L (3.5-5.1); Total Protein 6.1 G/DL (6.4-8.3)
[2016-09-10] MEDS: cefTRIAXone 2,000 MG in SODIUM CHLORIDE 0.9% 100 ML IV SCH (03:52)
[2016-09-10] MEDS: LOSARTAN 50 MG TABLET PO SCH ×2 (04:21→09:18)
[2016-09-10] MEDS: ACYCLOVIR INJ 1,000 MG in SODIUM CHLORIDE 0.9% 250 ML IV SCH (05:26)
[2016-09-10] MEDS: VANCOMYCIN INJ 1,250 MG in SODIUM CHLORIDE 0.9% 250 ML IV SCH (05:43)
--- NOTE | 2016-09-10 08:49 | Discharge Summary ---
Hospital Course - Hospital Course Hospital Course: This is a 76 year-old elderly male that presented form a local correctional facility for evaluation of altered mental status and hypotension. Upon ED evaluation, he was found to hyponatremic, dehydrated, and grossly febrile. He was rehydrated; however he remained febrile; in which he was subsequently diagnosed with viral meningitis. A neurology consult was requested to assist in the mangement. The patient has received both antibiotic and antiviral treatment during the course of his admission, however is in need of additional treatments after discharge in a more controlled setting. Today, he has returned to his baseline and verbalizes no complaints. He is appropriate for discharge into a long-term acute care setting for the continuation of antibiotic and antiviral therapy.Mr. Edmonds is a 76-year-old white male with history of hypertension sent to the ED from the correctional facility with altered mental status and orthostatic hypotension. Specialty Discharge - Follow Up or Referrals Follow up with: Rosalee White MD [Physician] - (CALL FOR ANY QUESTIONS/ISSUES.) Discharge Plan - Discharge Data Disposition: Disch/Xfer to [facility] - Discharge Medications New Acetaminophen Tab [Tylenol Tab] 650 mg PO Q4H PRN #0 tablet PRN Reason: Fever, Headache, Mild Pain Acyclovir Inj [Zovirax Inj] 1,000 mg IV Q8H vial Carvedilol [Coreg] 6.25 mg PO BID W/MEALS tablet Losartan [Cozaar] 50 mg PO BID tablet Ondansetron Inj [Zofran Inj] 4 mg IV Q4H PRN #0 vial PRN Reason: Nausea Pantoprazole Tab [Protonix Tab] 40 mg PO DAILY tablet Vancomycin Inj 1,250 mg IV Q12H vial amLODIPine [Norvasc] 10 mg PO DAILY tablet hydrALAZINE INJ [Apresoline Inj] 10 mg IV Q6H PRN #0 vial PRN Reason: Hypertension Aspirin EC Tab 81 mg PO DAILY tablet cefTRIAXone [Rocephin] 2,000 mg IV Q12H vial Continue Tamsulosin [Flomax] 0.4 mg PO DAILY Naproxen [Naprosyn Tab] 500 mg PO BID PRN PRN Reason: Pain Discontinued Lisinopril/Hydrochlorothiazide [Lisinopril-Hctz 20-12.5 mg Tab] 12.5 mg PO DAILY Cyclobenzaprine HCl 10 mg PO BID - Follow Up or Referral Follow Up: Rosalee White MD [Physician] - (CALL FOR ANY QUESTIONS/ISSUES.) - Forms/Instructions Instructions: Hyponatremia (DC), Altered Mental Status (GEN) Exam - Constitutional Vitals: Period Temp Pulse Resp BP Sys/Alonso Pulse Ox Last 24 Hr 98.9 F-99.5 F 66-88 18-20 148-174/86-92 92-95 Discharge Results Procedures and tests throughout hospitalization: Pending Orders 09/08/16 ERNST CSF([facility]) Stat CSF Culture and Gram Stain Stat Cryptococcal Antigen Stat Rico-Taylor Virus PCR Stat Fungal Culture w/ Prep Stat HSV PCR Other Sources Stat Herpes Simplex Virus,PCR,CSF Stat Emi Ink Stat Meningitis Ags w/CSF Cult/Smea Stat VDRL Spinal Fluid Stat Varicella-Zoster Virus, PCR Stat Viral Culture, Non-Respiratory Stat West Nile Virus, CSF IgG/M Stat Labs on day of discharge: Labs from last 24 hours 09/10/16 09/10/16 09/10/16 01:57 01:57 01:57 WBC 11.5 RBC 4.32 Hgb 12.8 L Hct 35.9 L MCV 83.1 L MCH 30 MCHC 35.7 RDW 13.3 Plt Count 378 MPV 11.0 Neut % (Auto) 52.5 Lymph % (Auto) 37.3 [place] % (Auto) 7.4 Eos % (Auto) 2.1 Baso % (Auto) 0.3 Neut # (Auto) 6.0 Lymph # (Auto) 4.3 H [place] # (Auto) 0.9 H Eos # (Auto) 0.2 Baso # (Auto) 0.0 Immature Gran % 0.4 Nucleated RBC % 0.0 Immature Gran # 0.05 Nucleated RBCs # 0.00 Sodium 147 H 147 H Potassium 3.5 3.5 Chloride 112 H 113 H Carbon Dioxide 23 24 Anion Gap 15.5 H 13.5 BUN 17 17 Creatinine 0.90 0.90 GFR Calculation 97 97 BUN/Creatinine Ratio 18.00 18.00 Glucose 106 107 H Calculated Osmolality 293.4 293.4 Calcium 8.1 L 8.2 L Total Bilirubin 0.40 AST 21 ALT 21 Alkaline Phosphatase 77 Total Protein 6.1 L Albumin 2.9 L Globulin 3.2 Albumin/Globulin Ratio 0.9 L Vancomycin Trough 09/09/16 09/09/16 16:47 07:46 WBC RBC Hgb Hct MCV MCH MCHC RDW Plt Count MPV Neut % (Auto) Lymph % (Auto) [place] % (Auto) Eos % (Auto) Baso % (Auto) Neut # (Auto) Lymph # (Auto) [place] # (Auto) Eos # (Auto) Baso # (Auto) Immature Gran % Nucleated RBC % Immature Gran # Nucleated RBCs # Sodium 149 H Potassium 3.6 Chloride 116 H Carbon Dioxide 21 Anion Gap 15.6 H BUN 15 Creatinine 0.70 GFR Calculation 108 BUN/Creatinine Ratio 21.00 H Glucose 111 H Calculated Osmolality 297.1 Calcium 8.2 L Total Bilirubin 0.50 AST 26 ALT 19 Alkaline Phosphatase 80 Total Protein 6.3 L Albumin 3.0 L Globulin 3.3 Albumin/Globulin Ratio 0.9 L Vancomycin Trough 12.9 Preliminary micro results at discharge 09/08/16 Unknown CSF Culture - Preliminary Cerebral Spinal Fluid No growth at 24 hours DS: Provider Date of admission: 09/05/16 03:42 Primary care physician: . No PCP Attending physician on admission: Meryl Fernandez MD Consults: 09/05/16 12:57 Consult to Case Mgmt/Social Srvs [CONS] Routine Reason for Case Mgmt/Social Srvs: Rehab Consult Comment: does assisted pay for rehab Consult to Physical Therapy [CONS] Routine Reason for Physical Therapy: Weakness 09/07/16 14:19 Consult to Pharmacy [CONS] Routine Reason for Pharmacy Consult: Dose/Manage Vancomycin 09/08/16 12:23 Consult to Physician [CONS] Routine Comment: ? meningitis Consulting Provider: Hugh Arzate 09/09/16 10:42 Consult to Case Mgmt/Social Srvs [CONS] Routine Reason for Case Mgmt/Social Srvs: LTAC Rehab Consult Comment: LTAC placement @ [facility] in [place] Discharging clinician: Julee Farrell, YONAS
[2016-09-10 08:59] VITALS: BP 120/78
[2016-09-10] MEDS: POTASSIUM CHLORIDE INJ 40 MEQ in DEXTROSE 5% 1,000 ML IV SCH ×2 (09:17→09:18)
[2016-09-10] MEDS: CARVEDILOL 6.25 MG TABLET PO SCH (09:18)
[2016-09-10] MEDS: TAMSULOSIN 0.4 MG CAPSULE PO SCH (09:18)
[2016-09-10] MEDS: PANTOPRAZOLE 40 MG TABLET PO SCH (09:18)
[2016-09-10 11:41] LABS: VDRL Spinal Fluid Negative (Negative)
[2016-09-10 14:17] LABS: Epstein-Barr Virus Result Negative (Negative); Epstein-Barr Virus Source CSF; Specimen Source CSF
[2016-09-12 16:32] LABS: West Nile Virus Ab, IgG, CSF Negative (Negative); West Nile Virus Ab, IgM, CSF Negative (Negative)
== END 2016-09-10 09:00 | DRG 75 ==
LOC: N.ED 22:17 → SUATTDRO 09-05 03:42 → N.EDINP 09-05 03:42 → N.3W 09-05 04:42
PROVIDERS: ADMIT Internal Medicine; ATTEND Internal Medicine